=== PATIENT | male | born 1950 | race Caucasian/White ===

== ENCOUNTER 2017-06-14 09:01 | Outpatient (CLI) | payer OTHER ==
[~2017-06-14 09:01] MED LIST: CATAFLAN PO; KEPPRA500 MG PO
== END 2017-06-14 12:11 | disposition home or self-care (01) ==
LOC: TOM 09:01
DX: R10.9 Unspecified abdominal pain (principal)
CPT/HCPCS: 74177; Q9965

== ENCOUNTER 2018-01-19 09:02 | Outpatient (CLI) | payer OTHER | END 2018-01-19 09:16 | disposition home or self-care (01) | LOC: TOM 09:02 | DX: R10.84 Generalized abdominal pain (principal); K81.9 Cholecystitis, unspecified ==

== ENCOUNTER → 2019-02-27 | Outpatient (CLI) | payer OTHER | END | disposition home or self-care (01) | LOC: RAD 16:26 | DX: M12.861 Other specific arthropathies, not elsewhere classified, right knee (principal); M12.862 Other specific arthropathies, not elsewhere classified, left knee ==

== ENCOUNTER 2020-04-10 08:54 | Outpatient (CLI) | payer OTHER | END 2020-04-10 09:01 | disposition home or self-care (01) | LOC: RAD 08:54 | PROVIDERS: ATTEND Internal Medicine Cardiovascular Disease | DX: M46.47 Discitis, unspecified, lumbosacral region (principal) ==

== ENCOUNTER 2021-04-16 07:17 | Outpatient (CLI) | payer OTHER | END 2021-04-16 07:22 | disposition home or self-care (01) | LOC: RAD 07:17 | PROVIDERS: ATTEND Internal Medicine Cardiovascular Disease | DX: M25.561 Pain in right knee (principal); M25.551 Pain in right hip; M12.88 Other specific arthropathies, not elsewhere classified, other specified site ==

== ENCOUNTER 2021-07-22 07:29 | Outpatient (CLI) | payer OTHER | END 2021-07-22 07:30 | disposition home or self-care (01) | LOC: NUCLEAR 07:29 | PROVIDERS: ATTEND Internal Medicine Cardiovascular Disease | DX: I25.2 Old myocardial infarction (principal) ==

== ENCOUNTER 2023-04-08 07:11 | Outpatient (CLI) | payer OTHER | END 2023-04-08 07:14 | disposition home or self-care (01) | LOC: NUCLEAR 07:11 | PROVIDERS: ATTEND Internal Medicine Cardiovascular Disease | DX: M19.90 Unspecified osteoarthritis, unspecified site (principal) | CPT/HCPCS: 78315; A9503 ==

== ENCOUNTER 2023-07-26 08:45 | Outpatient (CLI) | payer OTHER | END 2023-07-26 08:49 | disposition home or self-care (01) | LOC: SONOGRAMA 08:45 | PROVIDERS: ATTEND Pathology Anatomic Pathology | DX: D34 Benign neoplasm of thyroid gland (principal); E07.89 Other specified disorders of thyroid; E03.9 Hypothyroidism, unspecified ==

== ENCOUNTER 2024-02-16 07:43 | Outpatient (CLI) | payer OTHER | END 2024-02-16 07:44 | disposition home or self-care (01) | LOC: NUCLEAR 07:43 | PROVIDERS: ATTEND Internal Medicine Cardiovascular Disease | DX: I87.2 Venous insufficiency (chronic) (peripheral) (principal) ==

== ENCOUNTER → 2024-07-17 07:05 | Outpatient (CLI) | payer OTHER | END | disposition home or self-care (01) | LOC: NUCLEAR 07:00 | PROVIDERS: ATTEND Internal Medicine Cardiovascular Disease | DX: I20.9 Angina pectoris, unspecified (principal) | CPT/HCPCS: 78452; 93017; A9500 ==

== ENCOUNTER 2024-10-10 13:33 | Outpatient (CLI) | payer OTHER | END 2024-10-10 13:36 | disposition home or self-care (01) | LOC: RAD 13:33 | DX: M25.512 Pain in left shoulder (principal); M75.101 Unspecified rotator cuff tear or rupture of right shoulder, not specified as traumatic; M75.102 Unspecified rotator cuff tear or rupture of left shoulder, not specified as traumatic ==

== ENCOUNTER 2024-11-13 12:38 | Outpatient (CLI) | payer OTHER | END 2024-11-13 12:45 | disposition home or self-care (01) | LOC: RAD 12:38 | PROVIDERS: ATTEND Internal Medicine Cardiovascular Disease | DX: J44.9 Chronic obstructive pulmonary disease, unspecified (principal); M46.47 Discitis, unspecified, lumbosacral region ==